=== PATIENT | female | born 1975 | race Caucasian/White ===

== ENCOUNTER 2019-02-05 17:37 | Emergency (ER) | payer SELFPAY ==
[2019-02-05 20:35] LABS: WHITE BLOOD COUNT 13.8 10^3/ul (4.8-10.8)
[2019-02-05 20:35] LABS: ABNORMAL IP MESSAGE 1; HEMATOCRIT 28.3 % (37.0-47.0); HEMOGLOBIN 7.9 g/dl (12.0-16.0); MEAN CORPUSCULAR HEMOGLOBIN 18.2 pg (29.0-33.0); MEAN CORPUSCULAR HGB CONC 27.9 g/dl (32.0-37.0); MEAN CORPUSCULAR VOLUME 65.4 fl (82.0-101.0); PLATELET COUNT 796 10^3/UL (140-415); RED BLOOD COUNT 4.33 10^6/ul (4.20-5.40)
[2019-02-05] MEDS: KETOROLAC 30 MG INJ IV (20:36)
[2019-02-05 20:42] LABS: ADD MAN DIFF? YES; PATH REVIEW? YES; POSITIVE DIFF @See below
[2019-02-05 20:43] LABS: ANION GAP 12 (5-13); BLOOD UREA NITROGEN 11 mg/dl (7-20); CALCIUM 9.4 mg/dl (8.4-10.2); CARBON DIOXIDE 24 mmol/L (21-31); CHLORIDE 105 mmol/L (97-110); CREATININE 0.65 mg/dl (0.44-1.00); Estimated GFR > 60 mL/min (>60); GLUCOSE 94 mg/dl (70-220); POTASSIUM 3.7 mmol/L (3.5-5.1); SODIUM 141 mmol/L (135-144)
[2019-02-05 20:55] LABS: TROPONIN-I < 0.012 ng/ml (0.000-0.120)
[2019-02-05 21:18] LABS: ACANTHOCYTES 1+ (0-0); ANISOCYTOSIS 1+ (0-0); BASOPHIL #M 0.1 10^3/ul (0.0-0.0); BASOPHILS % (M) 1 % (0-2); BURR CELLS 2+ (0-0); EOSINOPHILS % (M) 1 % (0-7); HYPOCHROMASIA 1+ (0-0); LYMPHOCYTES #M 4.1 10^3/ul (0.8-2.9); LYMPHOCYTES % (M) 30 % (15-51); MICROCYTOSIS 1+ (0-0); MONOCYTE #M 0.1 10^3/ul (0.3-0.9); MONOCYTES % (M) 1 % (0-11); OVALOCYTES 3+ (0-0); PLATELET ESTIMATE INCREASED; POIKILOCYTOSIS 3+ (0-0); POLYCHROMASIA 1+ (0-0); SCHISTOCYTES 1+ (0-0); SEGMENTED NEUTROPHILS (M) % 67 % (39-77); SMUDGE%M 23 % (0-0); TEAR DROP CELLS 1+ (0-0)
== END 2019-02-05 22:11 | disposition home or self-care (01) ==
LOC: E/R 17:37
DX: D64.9 Anemia, unspecified (principal); J45.909 Unspecified asthma, uncomplicated; I10 Essential (primary) hypertension
CPT/HCPCS: 36415; 71045; 80048; 84484; 84703; 85025; 93005; 96374; 99285-25